=== PATIENT | male | born 1955 | race Caucasian/White ===

== ENCOUNTER 2018-02-20 13:10 | Outpatient (CLI) | payer OTHER ==
--- NOTE | 2018-02-20 15:30 | RAD ---
THREE VIEWS LUMBOSACRAL SPINE: Comparison: None. History: Low back pain that radiates down the left hip and leg. FINDINGS: Lateral views of the lumbosacral spine performed in neutral, flexion, and extension. The vertebral marisabel dies demonstrate normal height without fracture or subluxation. There is intervertebral disc space na rrowing at L1-2. Small osteophytes are seen throughout the lumbar spine. No posterior facet arthrosis is seen. Alignment is unchanged with neutral, flexion, and extension. IMPRESSION: Degenerative changes of the lumbar spine with unchanged alignment with bending. POS: [facility]
== END 2018-02-20 13:11 | disposition home or self-care (01) ==
LOC: TBSIIMAG 13:10
PROVIDERS: ATTEND Neurological Surgery
DX: M47.896 Other spondylosis, lumbar region (principal)
CPT/HCPCS: 72100